=== PATIENT | male | born 1955 | race Caucasian/White ===

== ENCOUNTER 2018-03-16 04:17 | Emergency (ER) | payer SELFPAY ==
[~2018-03-16] VITALS: Ht 165.1 cm; Wt 73.8 kg
[2018-03-16] MEDS ORDERED: ONDANSETRON HCL 4MG/2ML INJ IV STA (05:04)
[2018-03-16] MEDS ORDERED: SODIUM CHLORIDE 0.9% 1,000 ML IV ONE (05:04)
[2018-03-16] MEDS ORDERED: AMPICILLIN SOD/SULBACTAM NA 1.5 G in SODIUM CHLORIDE 0.9% 50 ML IV ONE (05:15)
[2018-03-16] MEDS ORDERED: DEXAMETHASONE 10 MG/ML VIAL IV ONE (05:15)
[2018-03-16 05:42] LABS: BASOPHILS % 0.3 % (0.0-2.0); EOSINOPHILS % 1.8 % (0.0-5.0); HEMATOCRIT. 45.8 % (42.0-52.0); HEMOGLOBIN. 15.7 g/dL (14.0-18.0); LYMPHOCYTES % 17.9 % (20.0-50.0); MEAN CORPUSCULAR HEMOGLOBIN 29.7 pg (28.0-32.0); MEAN CORPUSCULAR VOLUME 86.4 fL (80.0-94.0); MEAN PLATELET VOLUME 8.2 fl (7.4-10.4); MONOCYTES % 6.9 % (2.0-8.0); NEUTROPHILS % 73.1 % (40.0-76.0); PLATELET 272 x1000/uL (130-400); RED CELL DISTRIBUTION WIDTH 13.5 % (11.6-14.6)
[2018-03-16 05:46] LABS: CHLORIDE 106 mEq/L (98-107)
[2018-03-16] MEDS ORDERED: IOHEXOL-350 100 ML BOTTLE ONE (06:57)
[2018-03-16 07:30] VITALS: BP 134/70
== END 2018-03-16 07:58 | disposition home or self-care (01) ==
LOC: ER 07:30
DX: J39.0 Retropharyngeal and parapharyngeal abscess (principal)
CPT/HCPCS: 36415; 70491; 71045; 80048; 83605; 85025; 87040; 93005; 96365; 96375; 99284; J0295; J1100; J2405; J7030; Q9967